=== PATIENT | male | born 1960 | race Caucasian/White ===

== ENCOUNTER 2021-08-11 15:37 | Emergency (ER) | payer OTHER, BC, SELFPAY ==
[2021-08-11 15:42] VITALS: BP 153/79; PULSE 68; RESP 16; TEMP 36.9; O2SAT 97; BMI 26.9
[2021-08-11 15:52] VITALS: BP 153/79; PULSE 68; RESP 16; O2SAT 97
--- NOTE | 2021-08-11 16:03 | USCV_ITS ---
Dread Shetty Age: 60 Gender: M : 1960 Exam Date: 08/11/2021 16:30 Ordering Phys: Stephanie Jc Technologist: William Ascencio [place]am Location[place] [facility] [place]ication: lt leg crushing injury PROCEDURES: Venous duplex imaging was performed in only the left lower extremity. The following venous structures were evaluated: common femoral vein, profunda vein, proximal portion of the greater saphenous vein, superficial femoral vein, and the popliteal vein. In addition, the posterior tibial and peroneal trunk were evaluated. On the left side, the common femoral, superficial femoral, profunda femoral, popliteal, posterior tibial, greater saphenous veins, and the peroneal trunk were identified and interrogated in the standard fashion. These veins were found to be easily compressible with spontaneous blood flow. No evidence of insufficiency or thrombus noted. FINDINGS: Normal 2-D Doppler and augmentation and compressibility throughout the lower extremity venous structures. Additional imaging through the proximal calf veins also reveals no thrombus. Limited evaluation of the greater saphenous vein is patent with no thrombus.. CONCLUSIONS No evidence of left lower extremity DVT. Endy Mclean MD (Electronically Signed) Final Date: 12 August 2021 13:07 S
--- NOTE | 2021-08-11 16:03 | XRR_ITS ---
PROCEDURE INFORMATION: Exam: XR Left Tibia and Fibula Exam date and time: 08/11/2021 4:11 PM Age: 60 years old Clinical indication: Injury or trauma; Other: Unknown; Blunt trauma; Lower leg; Injury details: Left leg injury; Prior surgery; Surgery type: Lt knee TECHNIQUE: Imaging protocol: Radiologic exam of the Left tibia and fibula. Views: 2 views. COMPARISON: No relevant prior studies available. FINDINGS: Bones/joints: Osseous structures are intact. Negative for fracture. Soft tissues: Normal. XR/XR tibia fibula LT 2V [id number] IMPRESSION: No acute findings.
--- NOTE | 2021-08-11 16:04 | ED_ITS ---
HPI - Extremity Problem General: Chief complaint: Extremity Injury, Lower Stated complaint: left leg injury Time Seen by Provider: 08/11/21 15:49 Source: patient and family Mode of arrival: ambulatory Limitations: no limitations History of Present Illness: Patient is a 61-year-old male who presents to ED today with complaint of redness, swelling, and pain to the anterior aspect of his left lower leg. Patient tells me approximately 6 weeks ago he had a portion of the leg crushed between a piece of machinery. He states there was never any breaks in the skin during this injury. He felt like area was sore and swollen for a few weeks but did seem to be improving. He states they have been doing a lot of walking recently purchased property. He states he has began noticing some worsening and swelling to the anterior aspect of his leg as well as some redness/skin changes that he is concerned about. Patient denies chest pain, shortness of breath, difficulty breathing. MD Complaint: extremity pain and extremity swelling Onset (ago): day(s) Pain Consistency: constant Location: left and lower extremity Radiation: none Relieving factors: nothing Exacerbating factors: weight bearing Associated symptoms: Reports no associated symptoms; Deny chest pain or fever(s) Review of Systems Const: Denies: fever(s), chills, body aches, fatigue or malaise Card: Denies: chest pain Resp: Denies: dyspnea GI: Denies: abdominal pain Musc: Reports: extremity pain and extremity swelling; Denies: neck pain, back pain, joint pain or joint swelling Neuro: Denies: numbness in extremities, weakness in extremities or sensory changes Physical Exam Const: COMMON NORMALS: no acute distress, average body habitus, patient oriented x3, no limitations, healthy appearing, alert and well nourished Resp: COMMON NORMALS: normal respiratory effort and clear to auscultation bilaterally AUSCULTATION: clear to auscultation bilaterally Cardio: COMMON NORMALS: regular rate and regular rhythm RATE: regular rate RHYTHM: regular rhythm Extremity: COMMON NORMALS: full ROM, capillary refill normal, no joint enlargement, no clubbing, cyanosis or edema, no calf tenderness and no pedal edema GENERAL: Yes normal exam except as noted LEFT LOWER EXTREMITY: Yes lower leg OTHER: pt has some mild swelling and TTP of mid L tibia; there is an area about 1.5 in x 1.5 in of redness/warmth that does seem to have the start of a little central clearing/necrosis vs hemorrhage; no diffuse cellulitis; no lymphangitic streaking Neuro: COMMON NORMALS: patient oriented x3, moves all extremities, no focal motor deficits and no sensory deficits noted SENSORIUM/ORIENTATION: Yes alert Course Vital Signs: Vital signs: Vital Signs Temperature 98.5 F 08/11/21 15:42 Pulse Rate 68 08/11/21 15:52 Respiratory Rate 16 08/11/21 15:52 Blood Pressure 153/79 08/11/21 15:52 Pulse Oximetry 97 08/11/21 15:52 MDM - Extremity (Nontraumatic) Medical Decision Making XR is negative. 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 On lateral view there is a very small 1-2mm possible foreign body vs non-specific calcification to mid tibia. Again he states the crush injury did not cause any breaks in his skin. He thinks this to might be secondary to a previous injury. Did go ahead and obtain ultrasound imaging of his leg which is negative for DVT. His vital signs are stable. At this point I will go ahead and place him on antibiotics for possible cellulitis. Recommend he follow-up with his primary care provider in 3 to 5 days if symptoms do not seem to be improving. Return ED precautions given and patient voiced understanding. Lab Data Radiology Impressions Tibia/Fibula X-Ray 08/11/21 16:03 IMPRESSION: No acute findings. Discharge Plan Discharge Patient Disposition: Home Clinical Impression: Cellulitis of left leg Condition: Stable Prescriptions: New clindamycin HCl 300 mg capsule 300 mg PO Q6H 7 Days Qty: 28 0RF Discharge Orders: Discharge ED (Routine); Ordered 08/11/21 Ordered By: Stephanie Jc Patient Instructions: Cellulitis (ED) Coding Level of Care Code ED Associate Professor Of Pathology for Padmaja Rodriguez
== END 2021-08-11 17:10 | disposition home or self-care (01) ==
PROVIDERS: Emergency Provider Physician Assistant
DX: L03.116 Cellulitis of left lower limb (principal); M79.605 Pain in left leg; M79.89 Other specified soft tissue disorders
CPT/HCPCS: 73590; 93971; 99283